=== PATIENT | male | born 1940 | race Caucasian/White ===

== ENCOUNTER 2017-09-08 04:30 | Emergency (ER) | payer BC ==
[2017-09-08 05:42] LABS: BILIRUBIN,URINE NEGATIVE (NEG); CLARITY,URINE CLEAR; COLOR,URINE YELLOW; GLUCOSE,URINE NEGATIVE (NEG); NITRITE,URINE NEGATIVE (NEG); PROTEIN,URINE NEGATIVE (NEG-TRACE); UROBILINOGEN,URINE 0.2 mg/dL (0.2 mg/dL)
[2017-09-08 05:46] LABS: BASO # 0.1 x10^3/uL (0.0-0.2); BASO % 1 % (0-3); EOS % 0 % (0-3); HEMATOCRIT 42.5 % (39.0-53.0); HEMOGLOBIN 14.3 g/dL (13.0-17.5); LYMPH # 1.8 x10^3/uL (1.0-4.8); LYMPH % 12 % (24-48); MEAN CORPUSCULAR HEMOGLOBIN 30 pg (25-35); MEAN CORPUSCULAR HGB CONC 34 g/dL (31-37); MEAN CORPUSCULAR VOLUME 89 fL (79-100); MONO # 0.7 x10^3/uL (0.0-1.1); MONO % 5 % (0-9); NEUT # 12.6 x10^3uL (1.8-7.7); NEUT % 83 % (31-73); PLATELET COUNT 374 x10^3/uL (140-400); RED BLOOD COUNT 4.79 x10^6/uL (4.30-5.70); RED CELL DISTRIBUTION WIDTH 14.1 % (11.5-14.5); WHITE BLOOD COUNT 15.2 x10^3/uL (4.0-11.0)
[2017-09-08 05:53] LABS: HYALINE CASTS, URINE FEW /HPF
[2017-09-08 05:54] LABS: BACTERIA,URINE FEW /HPF (0-FEW); SPERM,URINE PRESENT /HPF
[2017-09-08 06:00] LABS: ADD MAN DIFF? YES
[2017-09-08] MEDS ORDERED: CONTRAST GIVEN MC (06:00)
[2017-09-08 06:04] LABS: ANION GAP 7 (6-14); BLOOD UREA NITROGEN 33 mg/dL (8-26); BUN/CREATININE RATIO 37 (6-20); CALCIUM 9.4 mg/dL (8.5-10.1); CARBON DIOXIDE 29 mmol/L (21-32); CHLORIDE 98 mmol/L (98-107); CREATININE 0.9 mg/dL (0.7-1.3); GFR 81.4; GLUCOSE 129 mg/dL (70-99); POTASSIUM 4.9 mmol/L (3.5-5.1); SODIUM 134 mmol/L (136-145)
[2017-09-08 06:09] LABS: ALBUMIN 3.4 g/dL (3.4-5.0); ALBUMIN/GLOBULIN RATIO 0.7 (1.0-1.7); ALK PHOS 60 U/L (46-116); ALT (SGPT) 29 U/L (16-63); AST (SGOT) 18 U/L (15-37); TOTAL BILIRUBIN 0.5 mg/dL (0.2-1.0); TOTAL PROTEIN 8.3 g/dL (6.4-8.2)
[2017-09-08] MEDS: IOHEXOL 300 MG/ML 100ML VIAL. IV (06:25)
[2017-09-08 12:01] LABS: % BANDS 2 % (0-9); % LYMPHS 13 % (24-48); % MONOS 2 % (0-10); % SEGS 83 % (35-66); PLT ESTIMATE ADEQUATE (ADEQUATE)
[2017-09-08 12:03] LABS: BURR CELLS FEW; OVALOCYTES FEW
== END 2017-09-08 08:32 | disposition home or self-care (01) ==
LOC: ER 04:30
DX: N39.0 Urinary tract infection, site not specified (principal); K21.9 Gastro-esophageal reflux disease without esophagitis; I10 Essential (primary) hypertension
CPT/HCPCS: 36415; 51702; 74177; 80053; 81001; 85007; 85025; 99285-25; Q9967

== ENCOUNTER → 2017-09-13 | Outpatient (CLI) | payer BC | END | disposition home or self-care (01) | LOC: PETSC 15:05 | DX: R91.8 Other nonspecific abnormal finding of lung field (principal); K44.9 Diaphragmatic hernia without obstruction or gangrene; K57.30 Diverticulosis of large intestine without perforation or abscess without bleeding; N40.0 Benign prostatic hyperplasia without lower urinary tract symptoms; N32.89 Other specified disorders of bladder | CPT/HCPCS: 78815; A9552 ==

== ENCOUNTER 2017-09-29 18:35 | Emergency (ER) | payer BC ==
[2017-09-29 20:10] LABS: BILIRUBIN,URINE NEGATIVE (NEG); CLARITY,URINE CLEAR; COLOR,URINE YELLOW; GLUCOSE,URINE NEGATIVE (NEG); NITRITE,URINE POSITIVE (NEG); PH,URINE 5.5; PROTEIN,URINE NEGATIVE (NEG-TRACE); UROBILINOGEN,URINE 0.2 mg/dL (0.2 mg/dL)
[2017-09-29 20:17] LABS: BACTERIA,URINE MANY /HPF (0-FEW)
== END 2017-09-29 21:04 | disposition home or self-care (01) ==
LOC: ER 21:04
DX: N39.0 Urinary tract infection, site not specified (principal); R33.9 Retention of urine, unspecified; I10 Essential (primary) hypertension; K21.9 Gastro-esophageal reflux disease without esophagitis; N40.1 Benign prostatic hyperplasia with lower urinary tract symptoms
CPT/HCPCS: 51702; 81001; 87086; 87186; 99284-25

== ENCOUNTER → 2017-10-03 | Outpatient (CLI) | payer BC | END | disposition home or self-care (01) | LOC: KCIC US 14:53 | DX: M71.22 Synovial cyst of popliteal space [Baker], left knee (principal); R60.0 Localized edema | CPT/HCPCS: 93970 ==

== ENCOUNTER → 2017-12-18 | Outpatient (CLI) | payer BC | END | disposition home or self-care (01) | LOC: CT 09:33 | DX: C34.90 Malignant neoplasm of unspecified part of unspecified bronchus or lung (principal); E83.59 Other disorders of calcium metabolism; N29 Other disorders of kidney and ureter in diseases classified elsewhere; I10 Essential (primary) hypertension; J44.9 Chronic obstructive pulmonary disease, unspecified; K21.9 Gastro-esophageal reflux disease without esophagitis; R73.9 Hyperglycemia, unspecified; Z87.891 Personal history of nicotine dependence | CPT/HCPCS: 71250 ==

== ENCOUNTER → 2018-06-26 | Outpatient (CLI) | payer BC, MEDICARE ==
[2017-09-29 19:01] VITALS: BP 142/64
[~2018-06-26] MED LIST: AMLO5TAB10; AMLO5TAB10 PO; ASPI-630 PO; AZIT250T6 PO; BRIM5DRO2 OP; CEFP200T PO; CIPR500T94 PO; CYCL5TAB PO; DORZ10DR7 OU; FURO-69 PO; HYDR-3135 PO; LATA2.5D3 OP; LISI-130 PO; PRED-220 PO; RANI150C; RANI150T2 PO; SERT50TA PO; TAMS0.4C97 PO; TIOT4MIS3 IH; TROL35.4 TP
--- NOTE | 2018-06-26 09:52 | RAD ---
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 Radiation therapy 2018. Exposure: One or more of the following individualized dose reduction techniques were utilized for this examination: 1. Automated exposure control 2. Adjustment of the mA and/or kV according to patient size 3. Use of iterative reconstruction technique. Comparison: December 18, 2017 Contrast: None FINDINGS: Vascular structures: Limited exam without contrast. Atherosclerotic calcification. No evidence of aneurysm. Lymph nodes:No significant enlargement Thyroid gland:Visualized aspect is unremarkable. Heart: Coronary artery calcifications. Esophagus: Unremarkable Pleural spaces: No significant effusion Lungs: Spiculated mass in the right upper lobe is again identified. Measures about 17 mm x 7 mm maximum transverse dimensions, compared with 17 mm x 9 mm on similar prior slice. Some mild pleural-based nodularity in the left upper lobe posteriorly is unchanged. No new consolidating infiltrate is seen. Emphysematous changes are identified. There is some subtle nodularity identified in the posterior left lower lobe, image 59, which was not seen on the prior study. Individual nodules in this cluster measure up to 5 mm. Trachea and central airways: Patent Spine: Focal sclerotic lesion of upper thoracic vertebral body is unchanged. This also appears stable as compared with September 02, 2017. Degenerative spondylosis. Bones: No destructive process. Upper abdomen: Slices obtained through the upper most abdomen are limited by the noncontrast technique. Partially visualized kidneys again demonstrate nephrocalcinosis. External Soft Tissue: No acute findings. Impression: 1. Spiculated mass in the right upper lobe similar to minimally smaller. 2. There is a new area of clustered nodularity in the left lower lobe. May just be infectious/inflammatory, but recommend follow-up CT chest in 3 months for further evaluation. 3. Sclerotic lesion of upper thoracic vertebral body is stable. Electronically signed by: Adrien Jolley MD (06/26/2018 9:47 AM) [facility]
== END | disposition home or self-care (01) ==
LOC: CT 09:02
PROVIDERS: ATTEND Radiology Radiation Oncology
DX: C34.11 Malignant neoplasm of upper lobe, right bronchus or lung (principal); E83.59 Other disorders of calcium metabolism; N29 Other disorders of kidney and ureter in diseases classified elsewhere; J43.9 Emphysema, unspecified; M47.814 Spondylosis without myelopathy or radiculopathy, thoracic region; I10 Essential (primary) hypertension; K21.9 Gastro-esophageal reflux disease without esophagitis; Z87.891 Personal history of nicotine dependence
CPT/HCPCS: 71250

== ENCOUNTER → 2018-12-24 | Outpatient (CLI) | payer OTHER ==
[2017-09-29 19:01] VITALS: BP 142/64
--- NOTE | 2018-12-24 16:16 | RAD ---
CT chest without contrast 12/24/2018 INDICATION: History of lung cancer COMPARISON STUDY: CT chest without contrast June 26, 2018 FINDINGS: Multidetector CT imaging of the chest was performed without contrast. Heart size is normal. No pericardial effusion is seen. Dense coronary calcification noted. Coronary stents may be present. No pathologically enlarged mediastinal adenopathy is identified. No pneumothorax, pleural effusion, or focal consolidative infiltrate is identified. Spiculated mass in the right upper lung is grossly stable with respect to comparison study allowing for differences in slice selection/technique. Small nodular opacities in the basilar left lower lobe have increased in the interim. This is particularly true laterally (axial image 60). A new nodule is seen in the left lower lobe measuring 3 mm in diameter (axial image 56). New nodular opacities seen in the right lower lobe measuring 5 mm in diameter (axial image 45). Limited visualization of the upper abdomen demonstrates no acute changes in the interim. Right-sided gynecomastia appears slightly more prominent. Subareolar fullness of the right breast is increase in the interim correlate with evidence of gynecomastia. Nephrocalcinosis appears to be present involving the kidneys, grossly unchanged. No acute osseous abnormalities are identified. Diffuse osteopenia is seen. IMPRESSION: 1. Grossly stable spiculated nodule, right upper lung. 2. New 5 mm nodule, right lower lobe. Scattered sub-5 mm nodules in the left lower lobe have also increased in the interim. Metastatic disease cannot be excluded. Consider 3-6 month follow-up exam to evaluate stability. 3. Increased subareolar fullness in the right breast in the interim. Given the unilateral nature finding, dedicated imaging recommended. CT DOSING PQRS STATEMENT: One or more of the following individualized dose reduction techniques were utilized for this examination: 1. Automated exposure control 2. Adjustment of the mA and/or kV according to patient size 3. Use of iterative reconstruction technique Electronically signed by: Eriberto Sim MD (12/24/2018 4:13 PM) [id number]
== END | disposition home or self-care (01) ==
LOC: CT 08:06
PROVIDERS: ATTEND Radiology Radiation Oncology
DX: Z08 Encounter for follow-up examination after completed treatment for malignant neoplasm (principal); R91.8 Other nonspecific abnormal finding of lung field; I25.10 Atherosclerotic heart disease of native coronary artery without angina pectoris; N62 Hypertrophy of breast; Z85.118 Personal history of other malignant neoplasm of bronchus and lung
CPT/HCPCS: 71250

== ENCOUNTER → 2019-08-01 | Outpatient (CLI) | payer MEDICARE, OTHER ==
[2017-09-29 19:01] VITALS: BP 142/64
--- NOTE | 2019-08-01 13:09 | RAD ---
CT scan of the chest without contrast 08/01/2019 CLINICAL HISTORY: Lung cancer. TECHNIQUE: Unenhanced contiguous, 5 mm axial sections were obtained through the chest and upper abdomen. One or more of the following individualized dose reduction techniques were utilized for this study: 1. Automated exposure control. 2. Adjustment of the mA and/or kV according to patient size. 3. Use of iterative reconstruction technique. FINDINGS: Comparison study is dated 12/24/2018. A spiculated masslike opacity is seen within the superior aspect of the right upper lobe which measures 1.8 x 1.6 x 0.6 cm in craniocaudal, transverse and AP dimensions. It has not significantly changed when compared to the previous examination. Apical pleural thickening and associated areas of scarring are seen bilaterally, right greater than left. Dependent subsegmental atelectasis is seen involving both lower lobes. No pneumothorax or pleural effusion is seen. No area of consolidation is noted. Three noncalcified nodules are seen within the inferior aspect of the left lower lobe which are new since the previous examination. These measure 5 to 8 mm in size. No additional pulmonary nodule is seen. The heart is normal in size. Atherosclerotic calcification of the thoracic aorta and its branches is noted. The thoracic aorta is tortuous but tapers normally. Extensive coronary artery calcifications are seen. No hilar, mediastinal or axillary lymphadenopathy is noted. Images through the upper abdomen demonstrate patchy areas of increased attenuation involving the medullary portions of both kidneys consistent with medullary nephrocalcinosis. Atherosclerotic calcification of the abdominal aorta and its branches is noted. Minimal S-shaped curvature of the thoracolumbar spine is seen. Degenerative changes are seen involving the thoracic spine. A sclerotic lesion is seen involving the T4 vertebral body, unchanged. IMPRESSION: 1. Stable CT appearance of the 1.8 cm spiculated masslike opacity within the right upper lobe. 2. Three new pulmonary nodules are seen within the left lower lobe which measure 5 mm to 8 mm in size. Pulmonary metastasis are not excluded. Electronically signed by: David Nunes MD (08/01/2019 1:07 PM) [facility] [place]
== END | disposition home or self-care (01) ==
LOC: CT 09:41
PROVIDERS: ATTEND Radiology Radiation Oncology
DX: J92.9 Pleural plaque without asbestos (principal); J98.4 Other disorders of lung; J98.11 Atelectasis; I70.0 Atherosclerosis of aorta; I25.10 Atherosclerotic heart disease of native coronary artery without angina pectoris; Q25.46 Tortuous aortic arch; R91.1 Solitary pulmonary nodule
CPT/HCPCS: 71250

== ENCOUNTER → 2019-08-22 | Outpatient (CLI) | payer MEDICARE ==
[2017-09-29 19:01] VITALS: BP 142/64
--- NOTE | 2019-08-22 18:32 | RAD ---
EXAM: PET W CT SKULL TO MIDTHIGH EXAM DATE: 08/22/2019 INDICATION: Status post radiation therapy for right upper lobe lung cancer in 2018 with new nodules in the left lower lobe. Lung cancer restaging. RADIOPHARMACEUTICAL: 14.2 mCi of F-18 Fluorodeoxyglucose (FDG) I.V. via the right forearm. TECHNIQUE: Patient weight: 120 pounds. Following at least four-hour fasting, the patient's blood glucose was 93 mg/dl. Approximately 1 hour after administration of FDG, overlapping emission scanning was performed from the orbital meatal line through the pelvis. A low-dose CT was performed for attenuation correction purposes and anatomic localization. Fused images of PET and CT were reviewed. Any standardized uptake values (SUV) reported are maximum values within a volume region of interest, expressed in gm/ml. COMPARISON: Chest CT without IV contrast of 08/01/2019 and 12/24/2018. FINDINGS: PET: Respiratory motion artifact degrades detail but there is abnormal FDG uptake in the right lower lobe near the posterior lateral costophrenic angle and the vicinity of the new pulmonary nodules showing FDG uptake to max SUV of 3.2. Incidental subtle focal uptake is identified at the gastric pylorus to max SUV of 3.7. CT: No unexpected findings in the head and neck. The chest shows panlobular emphysema, stellate 1.4 cm at the posterior right upper lobe unchanged in size and show no abnormal metabolic activity, compatible with scarring and posttreatment changes. The 3 nodules identified on recent chest CT are somewhat obscured by respiratory motion artifact but remain visible, largest measuring 10 mm. No pneumothorax or pleural effusion. Unchanged densely calcified lesion in the anterior T4 vertebral body. Abdomen and pelvis show scattered arterial calcifications, mild distention of the urinary bladder and colonic diverticulosis. No adenopathy, mass, ascites or solid organ lesions identified. IMPRESSION: The pulmonary nodules in the left lower lobe are hypermetabolic. Although potentially inflammatory, lung metastases are not excluded. Otherwise, no findings suspicious for metabolically active residual or recurrent malignancy. Electronically signed by: Gabriel Francois MD (08/22/2019 6:30 PM) [id number]
== END ==
LOC: PETSC 11:31
PROVIDERS: ATTEND Radiology Radiation Oncology
DX: C34.11 Malignant neoplasm of upper lobe, right bronchus or lung (principal); R91.8 Other nonspecific abnormal finding of lung field; N32.89 Other specified disorders of bladder; K57.30 Diverticulosis of large intestine without perforation or abscess without bleeding
CPT/HCPCS: 78815; A9552

== ENCOUNTER → 2020-02-02 | Outpatient (CLI) | payer MEDICARE ==
[2017-09-29 19:01] VITALS: BP 142/64
[~2020-02-02] MED LIST changes: +CONTRAST GIVEN. MC PRN; +IOHEXOL 350 MG/ML 100 ML VIAL. IV ONE; +IOHEXOL 350 MG/ML 100 ML VIAL. ONE
--- NOTE | 2020-02-02 12:59 | RAD ---
CTA scan of the Chest with Contrast (Pulmonary Embolism protocol) 02/02/2020 Clinical History: Shortness of breath. Lung cancer. Technique: After the intravenous administration of 80 cc of Omnipaque 350, contiguous, 0.625 mm axial sections were obtained through the chest. 2 mm axial and 3D MIP coronal and sagittal reconstructed images were obtained. One or more of the following individualized dose reduction techniques were utilized for this study: 1. Automated exposure control. 2. Adjustment of the mA and/or kV according to patient size. 3. Use of iterative reconstruction technique. Findings: Comparison is made to patient's PET/CT scan dated 08/22/2019. No filling defect is seen within the major branches of either pulmonary artery. There is no CT evidence of pulmonary embolism. The heart is normal in size. The thoracic aorta is tortuous. Atherosclerotic calcification thoracic aorta is seen. Emphysematous changes are seen involving both lungs. Apical pleural thickening and scarring are seen bilaterally, right greater than left. Several nodular opacities are seen within the left lower lobe consistent with metastasis. These measure 3 to 6 mm in size. The largest nodules have decreased in size since previous study where they measured 8 mm in greatest diameter. No area of consolidation is seen. No pleural effusion or pneumothorax is noted. Impression: There is no CT evidence of pulmonary embolism. Electronically signed by: David Nunes MD (02/02/2020 12:56 PM) [id number]
== END | disposition home or self-care (01) ==
LOC: CT 11:28
PROVIDERS: ATTEND Internal Medicine Critical Care Medicine
DX: R91.1 Solitary pulmonary nodule (principal); J43.9 Emphysema, unspecified; J98.4 Other disorders of lung; I70.0 Atherosclerosis of aorta; Q25.46 Tortuous aortic arch
CPT/HCPCS: 71275; Q9967

== ENCOUNTER → 2020-08-30 | Outpatient (CLI) | payer MEDICARE ==
[2017-09-29 19:01] VITALS: BP 142/64
[~2020-08-30] MED LIST changes: +AMLO-186; +AMLO-186 PO; -AMLO5TAB10; -AMLO5TAB10 PO; -CONTRAST GIVEN. MC PRN; -IOHEXOL 350 MG/ML 100 ML VIAL. IV ONE; -IOHEXOL 350 MG/ML 100 ML VIAL. ONE
--- NOTE | 2020-08-30 17:56 | RAD ---
EXAM: CT CHEST WITHOUT CONTRAST HISTORY: Squamous cell carcinoma bronchus and right upper lobe COMPARISON: CT chest abdomen pelvis 02/02/2020 TECHNIQUE: Helical CT of the chest performed without contrast. Coronal and sagittal reformats were o btained. One or more of the following individualized dose reduction techniques were utilized for this examinat ion: 1. Automated exposure control 2. Adjustment of the mA and/or kV according to patient size 3. Use of iterative reconstruction technique. FINDINGS: Thyroid gland and thoracic inlet: Normal. Heart and great vessels: Heart is normal in size. There are coronary artery calcifications. Thoracic aorta is normal in caliber. Mediastinum and carlitos: No mediastinal or hilar lymphadenopathy. Lungs and pleura: No axillary lymphadenopathy. Chest wall and axillae: The previously seen spiculated nodule in the right apex is no longer discrete ly visualized but the adjacent subpleural thickening has increased and is more masslike, now measurin g overall 2.2 x 1.1 x 2.5 cm, previously 2.1 x 1.2 x 1.8 cm. There is associated spiculation or archi tectural distortion A nodule in the left lower lobe is new or larger, measuring 9 x 5 mm (image 56, s eries 3). There are multiple other small nodular opacities in the posterior costophrenic sulcus, some of which are new. Some of these have more of a groundglass appearance. Upper abdomen: Bilateral medullary nephrocalcinosis. Bones: No acute osseous abnormality. Dense sclerotic lesion in T4 measuring 1.2 cm is unchanged. IMPRESSION: 1. The spiculated nodule in the posterior right apex is no longer discretely visualized, possibly no w confluent with the adjacent subpleural thickening, which which has increased in size and is more ma sslike. There is associated spiculation or architectural distortion. This is may be progression of ma lignancy but could also be treatment-related changes. 2. New or increased pulmonary nodule in the left lower lobe measuring 9 x 5 mm. There are additional smaller pulmonary nodules in the left posterior costophrenic sulcus, some of which are new. 3. Unchanged dense sclerotic lesion in T4. Electronically signed by: Jacqui Diop MD (08/30/2020 5:53 PM) [id number]
== END ==
LOC: CT 09:49
PROVIDERS: ATTEND Radiology Radiation Oncology
DX: C34.11 Malignant neoplasm of upper lobe, right bronchus or lung (principal); R91.8 Other nonspecific abnormal finding of lung field; I25.10 Atherosclerotic heart disease of native coronary artery without angina pectoris; E83.59 Other disorders of calcium metabolism; N29 Other disorders of kidney and ureter in diseases classified elsewhere; M89.8X8 Other specified disorders of bone, other site
CPT/HCPCS: 71250

== ENCOUNTER → 2021-03-16 | Outpatient (CLI) | payer MEDICARE ==
[2017-09-29 19:01] VITALS: BP 142/64
--- NOTE | 2021-03-16 12:28 | RAD ---
EXAM: Chest CT without intravenous contrast. HISTORY: Squamous cell carcinoma. TECHNIQUE: Computed tomographic images of the chest were obtained without contrast. Multiplanar refor matting was performed. *One or more of the following individualized dose reduction techniques were utilized for this examina tion: 1. Automated exposure control. 2. Adjustment of the mA and/or kV according to patient size. 3. Use of iterative reconstruction technique. COMPARISON: 08/30/2020. FINDINGS: There has been no significant change in posterior right apical pleural thickening and adjac ent groundglass opacity, the appearance of which favors treatment related changes. There is a cluster of tiny nodules within the lateral right middle lobe, the largest of which measure 3 mm and are new compared to the prior study. The previously demonstrated 4 mm nodule in this location now measures 2 mm. There is a new 6 mm nodule with surrounding groundglass measuring 1.7 cm abutting the pleura of t he anterior right middle lobe. There is new focal groundglass opacity within the posterior right lowe r lobe, the appearance of which favors atelectasis or postinflammatory changes. There are several nod ules at the left lung base measuring up to 4 mm, the majority of which are decreased compared to the prior exam. There is a new pleural-based nodule at the lateral left lung base measuring 9 mm. There is a stable 2 mm nodule within the lateral left upper lobe. There is emphysema. There is no pne umothorax or pleural effusion. The heart is normal in size. There is stable trace pericardial fluid. There is heavily calcified atherosclerotic plaque involving the coronary arteries. There is calcifica tion of the aortic valve. No pathologically enlarged systolic or hilar lymph node is seen. There is r ight gynecomastia. There is no acute finding involving the upper abdomen. There is bilateral renal ne phrocalcinosis. There are degenerative changes throughout the spine. There is a stable dense scleroti c lesion within T4. IMPRESSION: 1. Stable posterior right apical pleural thickening and adjacent groundglass opacity, the appearance of which favors treatment related changes. The possibility of stable underlying malignancy is not exc luded. 2. Slight interval decrease in the majority of nodules and nodular opacities at the left lung base. T his favors resolving post infectious or post inflammatory etiology. There is a new pleural-based nodu le measuring 9 mm which may be due to subsegmental atelectasis. 3 month follow-up is recommended. 3. Slight interval increase in clustered nodules measuring 3 mm within the lateral right middle lobe. There is concomitant decrease in a previously demonstrated dominant nodule measuring 4 mm in this lo cation. This favors an infectious or inflammatory etiology. 4. New 6 mm nodule with sonographic measuring 1.7 cm abutting the pleura of the anterior right middle lobe. This is likely too small to characterize with PET/CT. Attention at the time of aforementioned 3 month follow-up is recommended. 5. Emphysema. 6. Heavily calcified atherosclerotic plaque involving the coronary arteries and dense calcification o f the aortic valve. 7. Stable sclerotic lesion within T4. Electronically signed by: Emilia Burks MD (03/16/2021 12:26 PM) [id number]
== END ==
LOC: CT 11:26
PROVIDERS: ATTEND Radiology Radiation Oncology
DX: C34.11 Malignant neoplasm of upper lobe, right bronchus or lung (principal); R91.8 Other nonspecific abnormal finding of lung field; J43.9 Emphysema, unspecified; I25.10 Atherosclerotic heart disease of native coronary artery without angina pectoris; I35.8 Other nonrheumatic aortic valve disorders; N62 Hypertrophy of breast; E83.59 Other disorders of calcium metabolism; N29 Other disorders of kidney and ureter in diseases classified elsewhere; M47.814 Spondylosis without myelopathy or radiculopathy, thoracic region
CPT/HCPCS: 71250